=== PATIENT | female | born 1970 | race Hispanic/Latino ===

== ENCOUNTER 2018-02-28 09:12 | Observation (INO) | payer SELFPAY ==
[~2018-02-28] VITALS: Ht 165.1 cm; Wt 78.0 kg
[2018-02-28] MEDS ORDERED: ASPIRIN 81 MG CHEW TAB PO ONE ×3 (09:30→12:15)
--- NOTE | 2018-02-28 09:51 | Diagnostic Imaging Report ---
PROCEDURE:CHEST SINGLE (PORTABLE) TECHNIQUE:PA and lateral chest INDICATION:Chest pain and numbness in the left arm. COMPARISON:None. FINDINGS: Lungs are clear and symmetrically inflated. No pleural effusions. Normal heart size, central vasculature, and mediastinal contour for technique. Intact skeleton. Questionable soft tissue nodularity of the right supraclavicular region. CONCLUSION: No acute abnormality. Questionable soft tissue fullness over the right supraclavicular region. Dictated by: Lee Shaikh M.D. on 02/28/2018 at 9:54 Electronically approved by: Lee Shaikh M.D. on 02/28/2018 at 9:54
[2018-02-28 09:57] LABS: BASOPHILS % 0.3 % (0.0-1.0); EOSINOPHILS # (AUTO) 0.2 (0.0-0.4); HEMATOCRIT 41.4 % (34.2-44.1); HEMOGLOBIN 13.8 g/dL (12.0-16.0); LYMPHOCYTES # (AUTO) 1.3 (1.0-3.2); LYMPHOCYTES % 22.3 % (18.0-39.1); MEAN CORPUSCULAR HEMOGLOBIN 29.2 pg (28-32); MEAN CORPUSCULAR HGB CONC 33.3 g/dL (31-35); MEAN CORPUSCULAR VOLUME 87.5 fL (81-99); MONOCYTES # (AUTO) 0.5 (0.2-0.8); NEUTROPHILS # (AUTO) 3.9 (2.1-6.9); NEUTROPHILS % 64.1 % (38.7-80.0); PLATELET COUNT 358 x10e3/uL (140-360); RED BLOOD COUNT 4.73 x10e6/uL (3.6-5.1); RED CELL DISTRIBUTION WIDTH 12.1 % (11.7-14.4)
[2018-02-28] MEDS ORDERED: NITROGLYCERIN 0.4 MG SUBL SL PRN (10:00)
[2018-02-28 10:12] LABS: ALANINE AMINOTRANSFERASE 25 IU/L (0-55); ALBUMIN 3.8 g/dL (3.5-5.0); ALKALINE PHOSPHATASE 48 IU/L (40-150); ANION GAP 14.5 mmol/L (8-16); BLOOD UREA NITROGEN 10 mg/dL (7-26); BUN/CREATININE RATIO 14 (6-25); CALCIUM 9.6 mg/dL (8.4-10.2); CARBON DIOXIDE 23 mmol/L (22-29); CHLORIDE 105 mmol/L (98-107); CREATINE KINASE 95 IU/L (29-168); CREATININE, SERUM 0.71 mg/dL (0.57-1.11); EST GLOMERULAR FILTRATION RATE > 60 ML/MIN (60-); GLUCOSE 105 mg/dL (74-118); POTASSIUM 3.5 mmol/L (3.5-5.1); SODIUM 139 mmol/L (136-145)
[2018-02-28 10:34] LABS: INR 1.01; PROTHROMBIN TIME 12.5 seconds (11.9-14.5)
[2018-02-28 10:35] LABS: PARTIAL THROMBOPLASTIN TIME 27.1 seconds (23.8-35.5)
--- NOTE | 2018-02-28 11:23 | Diagnostic Imaging Report ---
EXAM: CT Chest WITH contrast 02/28/2018 9:42 AM INDICATION: \S\chest pain pleuritc \[id number] \S\1045 COMPARISON: None TECHNIQUE: Chest was scanned utilizing a multidetector helical scanner from the lung apex through the level of the adrenal glands without administration of IV contrast. Coronal and sagittal reformations were obtained. Routine protocol was performed. IV CONTRAST: 100 mL of Isovue-370 COMPLICATIONS: None RADIATION DOSE: Total DLP: 618.27 mGy*cm Estimated effective dose: (DLP x 0.014 x size factor) mSv CTDIvol has been reviewed. It is below the limits set by the Radiation Protocol Committee (RPC). FINDINGS: LINES/ TUBES: None. LUNGS AND AIRWAYS: The lungs are unremarkable. Airways are normal. PLEURA: The pleural spaces are clear. HEART AND MEDIASTINUM: The thyroid gland is normal. No mediastinal, hilar or axillary lymphadenopathy. The heart is normal in size.. There is no pericardial effusion. UPPER ABDOMEN: Unremarkable. BONES: No acute osseous abnormality. 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 SOFT TISSUES: Unremarkable. IMPRESSION: Unremarkable chest CT. No acute abnormality. Signed by: Dr. Alfie Lechuga MD on 02/28/2018 11:19 AM
--- OUTSIDE RECORDS SUMMARY | 2018-02-28 13:00 | XMS REPORT ---
Author [facility] Address Unknown Phone Unavailable Care Team Providers Care Senior Program Manager Name Role Phone MARLENY SMITH Unavailable Unavailable Problems This patient has no known problems. Allergies, Adverse Reactions, Alerts This patient has no known allergies or adverse reactions. Medications This patient has no known medications. Results Test Description Test Time Test Comments Text Results Atomic Results Result Comments CT CHEST W 2018-02-28 11:12:00 [place] [address] Patient Name: MADELEINE CONNORS MR #: [id number] : 1970 Age/Sex: 47/F Req #: [id number] [facility] Physician: Ordered by: MARLENY SMITH MD Report #: [id number] Location: ER Room/Bed: Procedure: [id number] CT/CT CHEST W Exam Date: 02/28/18 Exam Time: 1045 REPORT STATUS: Signed EXAM: CT Chest WITH contrast 02/28/2018 9:42 AM INDICATION: COMPARISON: None TECHNIQUE : Chest was scanned utilizing a multidetector helical scanner from the lung apex through the level of the adrenal glands without administration of IV contrast. Coronal and sagittal reformations were obtained. Routine protocol was performed. IV CONTRAST: 100 mL of Isovue-370 COMPLICATIONS: None RADIATION DOSE: Total DLP: 618.27 mGy*cm Estimated effective dose: (DLP x 0.014 x size factor) mSv CTDIvol has been reviewed. It is below the limits set by the Radiation Protocol Committee (RPC) . FINDINGS: LINES/ TUBES: None. LUNGS AND AIRWAYS: The lungs are unremarkable. Airways are normal. PLEURA: The pleural spaces are clear. HEART AND MEDIASTINUM: The thyroid gland is normal. No mediastinal , hilar or axillary lymphadenopathy. The heart is normal in size.. There is no pericardial effusion. UPPER ABDOMEN: Unremarkable. BONES: No acute osseous abnormality. 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 SOFT TISSUES: Unremarkable. IMPRESSION : Unremarkable chest CT. No acute abnormality. Signed by: Dr. Alfie Rodriguez MD on 02/28/2018 11:19 AM Dictated By: ALFIE RODRIGUEZ MD 18 Transcribed By: DEVON on 02/28/181118 COPY TO: MARLENY SMITH MD CHEST SINGLE (PORTABLE) [place] [address] Patient Name: MADELEINE CONNORS MR #: [id number] : 1970 Age/Sex: 47/F Req #: [id number] Adm Physician: Ordered by: MARLENY SMITH MD Report #: [id number] Location: ER Room/Bed: Procedure: [id number] DX/CHEST SINGLE (PORTABLE) Exam Date: 02/28/18 Exam Time: 919 REPORT STATUS: Signed PROCEDURE: CHEST SINGLE (PORTABLE) TECHNIQUE: PA and lateral chest INDICATION: Chest pain and numbness in the left arm. COMPARISON: None. FINDINGS: Lungs are clear and symmetrically inflated. No pleural effusions. Normal heart size, central vasculature, and mediastinal contour for technique. Intact skeleton. Questionable soft tissue nodularity of the right supraclavicular region. CONCLUSION: No acute abnormality. Questionable soft tissue fullness over the right supraclavicular region. Dictated by: Michelle Shaikh M.D. on 02/28/2018 at 9:54 Electronically approved by: Michelle Shaikh M.D. on 02/28/2018 at 9:54 Dictated By: MICHELLE SHAIKH MD 3 Transcribed By: FAITH on 02/28/18953 COPY TO: MARLENY SMITH MD
[2018-02-28 13:26] LABS: BILIRUBIN,URINE NEGATIVE (NEGATIVE); CLARITY,URINE CLEAR (CLEAR); COLOR,URINE YELLOW (YELLOW); KETONES,URINE NEGATIVE (NEGATIVE); LEUKOCYTE ESTERASE ,URINE NEGATIVE (NEGATIVE); NITRITE,URINE NEGATIVE (NEGATIVE); PROTEIN,URINE DIPSTICK NEGATIVE (NEGATIVE); URINE UROBILINOGEN 0.2 mg/dL (0.2 - 1)
[2018-02-28 13:34] LABS: BACTERIA,URINE FEW /HPF; EPITHELIAL CELLS,URINE MODERATE /LPF; WBC,URINE (MAN) 0-5 /HPF (0-5)
[2018-02-28] MEDS ORDERED: SODIUM CHLORIDE 0.9% 50ML 50 ML ONE (14:25)
[2018-02-28] MEDS ORDERED: IOPAMIDOL 370 MG/ML 200 ML INFUS..BTL INJ ONE (14:25)
[2018-02-28 15:00] VITALS: BP 107/69
[2018-02-28 16:00] VITALS: BP 109/71
[2018-02-28 17:39] LABS: CREATINE KINASE 93 IU/L (29-168)
[2018-02-28 20:00] VITALS: BP_SYST 109; BP_SYST 111; BP_DIAS 57; BP_DIAS 71
--- NOTE | 2018-02-28 20:04 | History and Physical ---
CHIEF COMPLAINT: Chest pain. HISTORY OF PRESENT ILLNESS: Ms. Duong is a 47-year-old female who presented to the emergency room with complaints of chest pain. Patient never had any problems. No Medical history. The chest pain started around 5 a.m. and lasted 6 to a.m. and then stopped, but again recurred at 8 o'clock, and so she decided to come to the emergency room. It was pleuritic in nature, but she never had any shortness of breath. In the emergency room, patient underwent a CT of the chest which did not show any pulmonary embolism. Cardiac enzymes were negative. She was admitted for chest pain. REVIEW OF SYSTEMS: Negative except as in history of present illness. PAST MEDICAL HISTORY: None. PAST SURGICAL HISTORY: . FAMILY AND SOCIAL HISTORY: She lives with her boyfriend and daughter. She works in a dental office. PHYSICAL EXAM: VITAL SIGNS: Temperature 98.1, pulse of 60, blood pressure 160/70, respiratory rate 18, O2 sat 97%. HEENT: Head is normocephalic, atraumatic. Pupils are reactive. NECK: Supple. CHEST: Clear to auscultation bilaterally. No wheezing. HEART: S1 and S2 audible. ABDOMEN: Soft. EXTREMITIES: No clubbing, cyanosis or edema. NEUROLOGIC: Awake and alert. LABS: Reviewed. Cardiac enzymes x2 negative. CBC is normal. Chest x-ray and CT chest reviewed and they are normal. ASSESSMENT/PLAN: A 47-year-old female with chest pain. Plan to follow the troponins. Cardiology consult. Follow cardiology recommendations. Patient will be discharged when cleared by cardiology. Job#: [id number]
[2018-03-01] VITALS: BP 107/64
[2018-03-01 04:00] VITALS: BP 110/64
[2018-03-01 04:12] VITALS: BP 107/64
[2018-03-01 06:49] LABS: CREATINE KINASE 105 IU/L (29-168)
[2018-03-01 06:55] LABS: CHOL/HDL RATIO 2.2 (3.0-3.6)
[2018-03-01 07:59] VITALS: BP 100/68
[2018-03-01 12:10] VITALS: BP 113/63
--- NOTE | 2018-03-01 12:31 | Discharge Summary ---
FINAL DIAGNOSIS: Noncardiac chest pain. ADMISSION HISTORY AND HOSPITAL COURSE: Ms. Duong is a 47-year-old female. She presented to the emergency room with anginal chest pain. Patient underwent stress test, which was negative. Cardiology has cleared the patient. CT chest was done to rule out PE, which was negative. Patient will be discharged home to follow up with her primary care physician. RUBEN MUNSON MD Job#: [id number] EV
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
== END 2018-03-01 12:38 | disposition home or self-care (01) ==
LOC: ER 09:12 → ERHOLD 12:57 → IMCU 14:34
PROVIDERS: ADMIT Internal Medicine Pulmonary Disease; ATTEND Internal Medicine Pulmonary Disease
DX: R07.89 Other chest pain (principal)
CPT/HCPCS: 36415 ×2; 71045; 71260; 80053; 80061; 81001; 82550 ×2; 82553 ×2; 83880; 84484 ×2; 85025; 85610; 85730; 93005; 93017; 99284; G0378 ×2; Q9967